=== PATIENT | male | born 1945 | race Caucasian/White ===

== ENCOUNTER 2021-01-01 12:37 | Outpatient (CLI) | payer OTHER, SELFPAY ==
--- NOTE | ~2021-01-01 | XR_ITS ---
EXAMINATION: XR lg joint inject/asp w image DATE: 01/01/2021 13:30 INDICATION: Unilateral primary osteoarthritis of the right hip TECHNIQUE: A time-out was performed to verify the patient's name, date of , and procedure to b e performed. The procedure including the risks, benefits, and alternatives was discussed with the pat ient. Risks discussed included bleeding and infection. The patient understood the risks and agreed to proceed. The skin overlying the right hip joint was prepped and draped in usual sterile fashion. A nesthetic was administered with 1% lidocaine subcutaneously. A 22 G needle was advanced under fluoro scopic guidance into the joint. Injection of 1 mL of Omnipaque 240 confirmed intra-articular positio n of the needle. Subsequently, injectate consisting of 7 mm a 5:2 mixture of 1% lidocaine: 10 mg/mL Kenalog for a total dosage of 20 mg Kenalog was instilled. Washout of contrast was seen confirming in tra-articular administration. The needle was removed and the entry site was cleaned and dressed. The re were no immediate complications. Fluoroscopy exposure time was 0.1 minutes. The total number of im ages was 2. Total DAP was 0.704 mGycm^2 FINDINGS: Real-time fluoroscopy demonstrates the needle in the right hip joint. Patient's pain prior to procedure:2/10. Patient's pain following the procedure: 0/10. Moderate to severe osteoarthritis o f the right hip. IMPRESSION: 1. Right hip joint injection of local anesthetic and steroid with decrease in the patient's presentin g pain. Reviewed, dictated and finalized at location A. IMPRESSION: 1. Right hip joint injection of local anesthetic and steroid with decrease in t he patient's presenting pain.
== END 2021-01-01 12:38 | disposition home or self-care (01) ==
PROVIDERS: PCP Family Medicine Adolescent Medicine; Visit Provider Orthopaedic Surgery
DX: M16.11 Unilateral primary osteoarthritis, right hip (principal)
CPT/HCPCS: 20610; 77002; J3301; Q9966

== ENCOUNTER 2021-04-03 07:46 | Outpatient (CLI) | payer OTHER, SELFPAY ==
--- NOTE | 2021-04-03 08:47 | ECG_ITS ---
Measurements Intervals [place] Rate: 59 P: 34 ND: 157 QRS: -69 QRSD: 130 T: -11 QT: 401 QTc: 398 Interpretive Statements SINUS BRADYCARDIA LEFT AXIS DEVIATION LEFT BUNDLE BRANCH BLOCK BASELINE ARTIFACT- I, II, III, AVR, AVL, AVF ABNORMAL ECG Electronically Signed On 04-03-2021 9:04:43 CDT by Bora Mcgraw D.O.
[2021-04-03 09:25] LABS: Basophils Absolute Auto 0.1 K/mm3 (0.0-0.1); Basophils Percent Auto 1.1 % (0.2-1.2); Eosinophils Absolute Auto 0.4 K/mm3 (0-0.3); Eosinophils Percent Auto 5.5 % (0-4.4); Hematocrit 51.5 % (42.0-52.0); Hemoglobin 16.9 g/dL (14.0-18.0); Immature Granulocyte Absolute 0.02 K/mm3 (0.00-0.031); Immature Granulocyte Percent A 0.3 % (0-0.5); Lymphocytes Absolute Auto 1.23 K/mm3 (0.9-3.2); Lymphocytes Percent Auto 18.9 % (18.3-44.2); Mean Corpuscular HGB Conc 32.8 g/dl (32-36); Mean Corpuscular Volume 91.5 fl (80-100); Monocytes Absolute Auto 0.5 K/mm3 (0.1-0.6); Monocytes Percent Auto 8.3 % (2.6-8.5); Neutrophils Absolute Auto 4.3 K/mm3 (1.3-6.7); Neutrophils Percent Auto 65.9 % (45.5-73.1); Platelet Count Result 202 k/mm3 (150-375); Red Blood Count 5.63 M/mm3 (4.6-6.20); Red Cell Distribution Width 13.2 % (11.5-14.5); White Blood Count 6.5 K/mm3 (4.5-10.0)
[2021-04-03 09:36] LABS: Albumin Level 4.7 g/dL (3.5-5.1); Estimated Glomerular Filt Rate > 60; Glucose 94 mg/dL (65-110)
[2021-04-03 09:39] LABS: Urine Cotinine NEGATIVE
[2021-04-03 09:46] LABS: Hemoglobin A1C 5.4 % (<5.7)
[2021-04-06 12:01] LABS: Theophylline 11.2 mg/L (10.0-20.0)
== END 2021-04-03 07:47 | disposition home or self-care (01) ==
LOC: ANHSURGERY 07:49
PROVIDERS: Anesthesiology; PCP Family Medicine Adolescent Medicine; Visit Provider Orthopaedic Surgery
DX: M16.9 Osteoarthritis of hip, unspecified (principal); Z01.818 Encounter for other preprocedural examination; I44.7 Left bundle-branch block, unspecified
CPT/HCPCS: 36415; 80198; 80307; 82040; 82565; 82947; 83036; 85025; 86850; 86900; 86901; 87081; 93005

== ENCOUNTER 2021-04-15 00:17 | Day surgery (SDC) | payer OTHER, SELFPAY ==
[2021-04-03 07:55] VITALS: BMI 27.1
[2021-04-03 08:45] VITALS: BP 155/73; PULSE 61; RESP 16; TEMP 36.6; O2SAT 98
[2021-04-15] VITALS (14 sets, daily range): BP systolic 104–143; BP diastolic 55–91; PULSE 76–89; RESP 12–20; TEMP 36.3–37.2; O2SAT 94–100
--- NOTE | ~2021-04-15 | XR_ITS ---
EXAMINATION: XR surgery orthopedic DATE: 04/15/2021 10:20 INDICATION: Intraoperative evaluation during right total hip arthroplasty TECHNIQUE: 2 fluoroscopic images of the right hip were obtained during procedure performed by Dr. Rick ashraf. The amount of fluoroscopy time used during this procedure was 0.3 minutes. Total DAP was 0.1 mGycm ^2. COMPARISON: 04/09/2021 FINDINGS: Intraoperative image during a right total hip arthroplasty demonstrate placement of a noncemented rig ht total hip arthroplasty which is in near-anatomic alignment. No fracture identified although assess ment of fine bone detail is somewhat limited on fluoroscopic imaging. Expected soft tissue gas at the operative bed. IMPRESSION: 1. Expected appearance during right total hip arthroplasty. Reviewed, dictated and finalized at location B.
--- NOTE | ~2021-04-15 | XR_ITS ---
EXAMINATION: XR hip RT min 2V DATE: 04/15/2021 10:56 INDICATION: Total right hip arthroplasty. Postop. TECHNIQUE: 2 views of right hip were obtained. COMPARISON: Pelvis and right hip radiographs 04/09/2021 FINDINGS: There is a total right hip arthroplasty in near-anatomic alignment. No fracture. IMPRESSION: 1. Total right hip arthroplasty in near-anatomic alignment. Reviewed, dictated and finalized at location A.
--- NOTE | 2021-04-15 06:43 | WPDANESEPPF ---
Anes - Initial Pre Proc Eval Procedure: Operation Date: 04/15/21 07:30 Proposed Procedures p Right Total Hip Arthroplasty, Anterior Approach - Franko Urbina MD Date/Time: 04/15/21 06:43 Surgeon: Franko Urbina MD Pre Op Diagnosis: OA Right hip Patient Data Age: 75 Gender: M Height: 1.7 m Weight: 78.4 kg Last Vital Signs Temp 36.6 C 04/03/21 08:45 Pulse 61 04/03/21 08:45 Resp 16 04/03/21 08:45 BP 155/73 H 04/03/21 08:45 Pulse Ox 98 04/03/21 08:45 Allergies Allergy/AdvReac Type Severity Reaction Status Date / Time DUST MITES Allergy Mild Unknown Uncoded 04/15/21 06:43 Home Medications Medication Instructions Recorded Confirmed Type aspirin 81 mg tablet,delayed 81 mg PO DAILY 12/25/20 04/09/21 History release atorvastatin 10 mg tablet 10 mg PO DAILY 12/25/20 04/09/21 History cetirizine 10 mg capsule 10 mg PO DAILY 12/25/20 04/09/21 History finasteride 5 mg tablet 5 mg PO DAILY 12/25/20 04/09/21 History flunisolide 29 mcg (0.025 %) nasal 2 mcg INTRANASAL DAILY 12/25/20 04/09/21 History spray fluticasone 250 mcg-salmeterol 50 1 inh INHALATION BID 12/25/20 04/09/21 History mcg/dose blistr powdr for inhalation gabapentin 300 mg capsule 300 mg PO HS 12/25/20 04/09/21 History magnesium oxide 400 mg PO HS 12/25/20 04/09/21 History montelukast 10 mg tablet 10 mg PO HS 12/25/20 04/09/21 History omeprazole 40 mg capsule,delayed 40 mg PO DAILY 12/25/20 04/09/21 History release tamsulosin 0.4 mg capsule 0.4 mg PO BID 12/25/20 04/09/21 History theophylline 300 mg 300 mg PO Q12H 12/25/20 04/09/21 History tablet,extended release,12 hr acetaminophen [Tylenol Arthritis] 650 mg PO Q12H 04/03/21 04/09/21 History aeqcyahi-kkf-FK-lycopen-lutein 1 tablet PO DAILY 04/03/21 04/09/21 History [Centrum Silver Men] rivaroxaban 10 mg tablet 10 mg PO DAILY #14 tablet 04/09/21 Rx Patient hx anesthesia problems: none Family hx anesthesia problems: none Results Review: All pre-operative results and documents have been reviewed as part of the pre-operative evaluation. [facility] Past Medical History Medical History (Updated 04/15/21 @ 06:45 by Garth Jones DO) Asthma GERD (gastroesophageal reflux disease) Hyperlipidemia Osteoarthritis of hip Both hips are arthritic, right is worse Family History Family History Mother Lung cancer Father Asthma Social History Social History Smoking status: Never smoker Additional smoking assessment comments: DENIES ANY FORM OF TOBACCO USE Alcohol intake: current Drinks per week: 5 Living arrangements: with family Gender identity (if verbalized by the patient): Male Spiritual care concerns: No Anes - Eval Final PreProcedure Day of Procedure 04/15/21 06:43 Patient weight: overweight Heart: regular rate and rhythm Lungs: clear to auscultation and normal air movement Airway: Mallampati scale class II Neurological: alert and oriented Last oral intake: >/= 8 hours ASA classification: II Emergent: no Anesthetic plan: proceed Anesthesia type and monitoring: general ETT and standard monitoring Results Review: All pre-operative results and documents have been reviewed as part of the pre-operative evaluation. Informed Consent: The patient's anesthetic plan and its attendant risks and benefits were discussed with the patient/family/POA. Questions were solicited and answers provided to the satisfaction of the patient/family/POA.
[2021-04-15] MEDS: ACETAMINOPHEN 500 MG TABLET 1000 MG PO (06:57)
[2021-04-15] MEDS: LACTATED RINGERS 1,000 ML 30 ML IV CONT ×2 (07:06→10:25)
[2021-04-15] MEDS: TRANEXAMIC ACID 1,000MG/ISO100 1,000 MG/100 ML BAG 200 MG IVPB (07:06)
--- NOTE | 2021-04-15 07:08 | WPDHPUPDATE1 ---
History and Physical Update Update Date/Time: 04/15/21 07:08 History and Physical has been reviewed, including an updated exam of the patient. There are NO changes in the patient's condition. Risks, benefits, and alternatives have been discussed and questions answered. Patient agrees to proceed with procedure.
[2021-04-15] MEDS: ceFAZolin 2 GM/D5W 50 ML 2 GM/50 ML BAG IVPB ×3 (07:41→23:49)
--- NOTE | 2021-04-15 10:26 | P.OP_ITS ---
Procedure Note - Detailed Date of Procedure 04/15/21 Pre-op Diagnosis OA Right hip Post-op Diagnosis same Procedure Performed fluoroscopically assisted right total hip replacement through an anterior approach Surgeon Franko Urbina MD Vascular Sonographer Shanon Mock Anesthesia general Description of Procedure The patient was identified, proper side identified, and then taken to the operating room. After general anesthetic induction and intubation, he was then transferred over to the [place] table positioning supine in the usual manner for an anterior hip procedure. Positioning was assessed fluoroscopically after which the right hip and thigh was prepped and draped in the usual sterile fashion. 10 cc of the arthroplasty solution was injected into the subcutaneous tissue over the TFL muscle belly. Longitudinal incision was made over the muscle belly. Subcutaneous tissue was sharply dissected down to the TFL fascia which was incised in line with the fibers the TFL. The TFL was retracted laterally and the rectus femoris medially. The rectus fascia was divided. The branches of the anterior femoral circumflex artery were identified and cauterized allowing for access to the hip capsule. Pericapsular fatty tissue was removed. The capsule was divided in an inverted T-fashion. The neck cut was made one fingerbreadth above the level of the lesser trochanter. Head fragment was removed and the acetabulum cleared of debris. Acetabulum was sequentially reamed under fluoroscopic visualization up to 51 mm. A 52 G7 shell was inserted under fluoroscopic visualization in approximately 40? of abduction and 15? of anteversion following the patient's anatomy. The liner for the Thirty- six head was placed. The femur was then delivered up into the wound with the appropriate releases. The proximal femur was prepared for the 11 offset microplasty stem and a trial reduction was undertaken. Overall alignment was assessed fluoroscopically in the AP and lateral views noting it to be satisfactory. Trial components were removed. The wound was irrigated with pulsatile lavage. The real size 11 high offset micro plasty stem was then seated. This construct with a size 36, minus three head gave excellent caodaism of leg lengths and stability so the real size 36 minus three ceramic head was attached to the neck of the femoral component after it had been cleaned and dried. Hip was again reduced and stability assessed, and it was noted to be stable. After final lavage of the wound, the periarticular tissues were injected with an additional 50 cc of the arthroplasty solution. 1 g of tranexamic acid was left in the wound. The capsule was reapproximated with #2 Vicryl suture, the TFL fascia with 0 looped PDS suture, the subcu with two of strata fix in the deeper layers and two of strata fix subcuticular stitch. Tissue adhesive was used for the skin. Sterile dressing was applied. He tolerated the procedure well. He was transferred back to a bed and taken to recovery area in stable condition. There were no known intraoperative complications. Estimated blood loss was 200 cc. He received perioperative antibiotics. Estimated Blood Loss 200 Drains No Packing No Pathology none sent Complications No immediate complications Condition stable Disposition PACU
[2021-04-15] MEDS: fentaNYL CITRATE INJ (*CRX) 100 MCG/2 ML VIAL 25 MCG IV PUSH ×6 (10:42→12:01)
--- NOTE | 2021-04-15 11:27 | SUR.PHASEI ---
[id number] sbar faxed floor notified
--- NOTE | 2021-04-15 12:27 | ADMGEN ---
This patient, Demar Beltran, was admitted to Medical Room 247-. Patient/family oriented to hospital policies and general routines including ID bracelet, bed and alarms, visiting hours, pain management, procedures, bathroom and other care routines, personal items, smoking policy, room service/diet, and visiting hours. Information on how to activate the Rapid Response Team has been discussed. Patient/Family are encouraged to report perceived risks to care and to ask questions if they do not understand what they are told or what they should do.
[2021-04-15] MEDS: ACETAMINOPHEN 325 MG TABLET 650 MG PO ×2 (12:49→18:27)
[2021-04-15] MEDS: KETOROLAC 15 MG/ML VIAL (*BKC) IV PUSH ×3 (12:49→23:49)
[2021-04-15] MEDS: DEXTROSE 5%/0.45% SOD CHL 1,000 ML 80 ML IV CONT (12:49)
--- NOTE | 2021-04-15 15:39 | PCPTNOTE ---
On 04/15/21, the student, Rolly Kumar, provided care and completed [facility] documentation on this patient. I have reviewed the student's documentation and agree with the findings.
[2021-04-15] MEDS: TAMSULOSIN HCL 0.4 MG CAPSULE PO (16:09)
[2021-04-15] MEDS: DOCUSATE SODIUM 100 MG CAPSULE PO (16:09)
[2021-04-15] MEDS: FLUTICASONE/SALMETEROL 115-21 MCG INHALER 1 PUFF 2 PUFF INHALATION (20:03)
[2021-04-15] MEDS: MONTELUKAST SODIUM 10 MG TABLET PO (21:03)
[2021-04-15] MEDS: GABAPENTIN 300 MG CAPSULE PO (21:03)
[2021-04-15] MEDS: MAGNESIUM OXIDE 400 MG TABLET PO (21:03)
[2021-04-16] MEDS: ACETAMINOPHEN 325 MG TABLET 650 MG PO ×3 (00:59→13:19)
[2021-04-16 03:35] VITALS: BP 122/53; PULSE 75; RESP 17; TEMP 37; O2SAT 95
--- NOTE | 2021-04-16 07:35 | PM.PNORT ---
Progress Note: A&P Assessment and Plan (1) History of right hip replacement: Code(s): Z96.641 - Presence of right artificial hip joint Status: Resolved (2) Urinary retention: Code(s): R33.9 - Retention of urine, unspecified Status: Acute Assessment and Plan: 75-year-old male postop day one right hip replacement through an anterior approach. Will have him continue with therapy today. For the urinary retention, urology has been consulted. Currently has a Mandujano in. Will cover with Bactrim DS while Mandujano is in place. Subjective Subjective Date/Time Seen: 04/16/21 07:35 Post Op day: 1 Principal diagnosis: Status post right hip replacement done through anterior approach Interval history: This document created with [id number] technology and is subject to ear flap binder irregularities. 75-year-old male who is postop day one right hip replacement done through an anterior approach. He was noted to have significant urinary retention with post void residuals of 1000, and 800 yesterday. History of prostatic hypertrophy. He indicated that he did not take his prostate medication just prior to surgery. Currently has a Mandujano in. Urology has been consulted. Is experiencing some soreness in the right hip area. Review of Systems Constitutional: Constitutional: Denies chills and Denies fever(s) Eyes: Eyes: Reports no additional eye complaints ENT: Reports system reviewed and no additional complaints, except as documented Cardiovascular: Cardiovascular: Denies chest pain and Denies dyspnea on exertion Respiratory: Respiratory: Reports no additional respiratory complaints and Denies dyspnea on exertion Gastrointestinal: Gastrointestinal: Denies abdominal pain and Denies bloating Exam Const: General: cooperative, no acute distress and alert Nutritional Appearance: other Orientation/consciousness: patient oriented x3 Limitations: no limitations HENMT: Head: normal to inspection Ears: hearing grossly normal bilaterally Face and sinus: face symmetric Mouth: Yes moist mucous membranes Teeth and gingiva: fair dentition Eyes: Alignment and Position: alignment normal and position normal Sclera: sclerae normal Neck: Neck: normal visual inspection and nontender Chest: Chest palpation & inspection: normal inspection of the chest Resp: Effort & Inspection: normal respiratory effort and able to speak in complete sentences GI: Inspection: other ( Nondistended) Skin: General skin exam: normal color Rashes: no rashes Neuro: General: patient oriented x3 Cognition (Neuro): normal cognition Speech: normal speech Sensory Exam: normal sensation Extrem: General: normal to inspection and other Other: Exam of the right hip wound does show some bruising with minimal swelling. Incision is dry. Grossly neurovascular status intact right lower extremity. Calves negative. Psych: Appearance: grossly normal Mental Status: mental status grossly normal Objective Data Vital Signs Vital Signs: Vital Signs - 24 hr 04/15/21 10:30 04/15/21 10:45 04/15/21 11:00 Temperature 97.9 F Pulse Rate 84 78 79 Respiratory Rate 12 14 12 Blood Pressure 140/59 L 104/91 H 121/69 Pulse Oximetry 94 98 100 04/15/21 11:19 04/15/21 11:35 04/15/21 11:53 Temperature Pulse Rate 80 80 83 Respiratory Rate 18 20 20 Blood Pressure 117/55 L 122/68 129/81 Pulse Oximetry 94 94 98 04/15/21 12:15 04/15/21 12:30 04/15/21 13:00 Temperature 98.4 F 98.2 F 98.1 F Pulse Rate 77 79 85 Respiratory Rate 20 20 20 Blood Pressure 130/61 125/72 140/67 Pulse Oximetry 98 97 97 04/15/21 14:00 04/15/21 18:00 04/15/21 20:21 Temperature 98.7 F 98.6 F 99 F Pulse Rate 89 87 82 Respiratory Rate 20 20 18 Blood Pressure 134/71 130/70 132/58 L Pulse Oximetry 97 98 95 04/15/21 23:55 04/16/21 03:35 Temperature 99 F 98.6 F Pulse Rate 82 75 Respiratory Rate 17 17 Blood Pressure 128/60 122/53 L Pulse Oximetry 97 95 Intake
[2021-04-16 08:19] LABS: Estimated CRCL calculation 54 ml/min; Estimated Glomerular Filt Rate > 60
--- NOTE | 2021-04-16 08:42 | WPDURCON ---
Assessment and Plan Assessment and plan (1) Urinary retention: Code(s): R33.9 - Retention of urine, unspecified Status: Acute Assessment and Plan: Patient to keep jimenez catheter in for 7-10 days, and then f/u in our office for a voiding trial. No further evaluation needed. (2) BPH (benign prostatic hyperplasia): Code(s): N40.0 - Benign prostatic hyperplasia without lower urinary tract symptoms Status: Acute Assessment and Plan: Restart Tamsulosin and Finasteride. Continue both medications s/p discharge. Urology Consult Note HPI Date Seen: 04/16/21 Requesting Physician: Franko Urbina MD Primary Care Provider: Joel Real MD Consult Narrative Narrative: Demar Beltran is a 75 year old male who is s/p a right total hip arthroplasty, which was done yesterday by Dr. Urbina. He is recovering well and in very little pain. He is sitting up in the chair this morning and tolerating his diet. However, he has had elevated urinary residuals of 800-1000cc of urine via straight catheterization. He normally is on Finasteride and Flomax at home which is prescribed by his PCP. He has been on the medications for years without any problems. He normally has nocturia x2/night, urinates q 2-3 hours daily, denies straining, hesitancy or incontinence. He states he stopped his BPH meds the day before surgery and thinks this may be contributing to his retention. He has never seen a urologist and has never had a jimenez catheter. Review of Systems Cardiovascular: Cardiovascular: Denies chest pain Respiratory: Respiratory: Reports no additional respiratory complaints Gastrointestinal: Gastrointestinal: Denies abdominal pain, Denies nausea and Denies vomiting Genitourinary: Genitourinary: Denies hematuria, Denies dysuria, Denies flank pain, Denies nocturia, Denies urinary frequency, Denies urinary hesitancy, Denies urinary incontinence and Denies urinary urgency [facility] Past Medical History Medical History Asthma GERD (gastroesophageal reflux disease) Hyperlipidemia Osteoarthritis of hip Surgical History Surgical History History of right hip replacement anterior approach April 15, 2021 Family History Family History Mother Lung cancer Father Asthma Social History Social History Smoking status: Never smoker Additional smoking assessment comments: DENIES ANY FORM OF TOBACCO USE Alcohol intake: never Drinks per week: 5 Substance use: never Substance use type: does not use Living arrangements: with family Gender identity (if verbalized by the patient): Male Sexual Orientation (if Verbalized by the Patient): Straight or Heterosexual Spiritual care concerns: No Meds Home Medications and Allergies Home Medications Medication Instructions Recorded Confirmed Type aspirin 81 mg tablet,delayed 81 mg PO DAILY 12/25/20 04/15/21 History release atorvastatin 10 mg tablet 10 mg PO DAILY 12/25/20 04/15/21 History cetirizine 10 mg capsule 10 mg PO DAILY 12/25/20 04/15/21 History finasteride 5 mg tablet 5 mg PO DAILY 12/25/20 04/15/21 History flunisolide 29 mcg (0.025 %) nasal 2 mcg INTRANASAL DAILY 12/25/20 04/15/21 History spray fluticasone 250 mcg-salmeterol 50 1 inh INHALATION BID 12/25/20 04/15/21 History mcg/dose blistr powdr for inhalation gabapentin 300 mg capsule 300 mg PO HS 12/25/20 04/15/21 History magnesium oxide 400 mg PO HS 12/25/20 04/15/21 History montelukast 10 mg tablet 10 mg PO HS 12/25/20 04/15/21 History omeprazole 40 mg capsule,delayed 40 mg PO DAILY 12/25/20 04/15/21 History release tamsulosin 0.4 mg capsule 0.4 mg PO BID 12/25/20 04/15/21 History theophylline 300 mg 300 mg PO Q12H 12/25/20 04/15/21 History
[2021-04-16] MEDS: ceFAZolin 2 GM/D5W 50 ML 2 GM/50 ML BAG IVPB (08:59)
[2021-04-16] MEDS: FLUTICASONE PROPIONATE 0.05% NA SPR 16 GM BTL (*BKC) 2 SPRAY NASAL (09:01)
[2021-04-16] MEDS: DOCUSATE SODIUM 100 MG CAPSULE PO (09:01)
[2021-04-16] MEDS: ASPIRIN 81 MG ENTERIC TABLET PO (09:01)
[2021-04-16] MEDS: OPTI-GEN TAB 1 TABLET PO (09:01)
[2021-04-16] MEDS: RIVAROXABAN 10 MG TABLET PO (09:01)
[2021-04-16] MEDS: TAMSULOSIN HCL 0.4 MG CAPSULE PO (09:01)
[2021-04-16] MEDS: ATORVASTATIN 10 MG TABLET PO (09:01)
[2021-04-16] MEDS: FINASTERIDE 5 MG TABLET PO (09:01)
[2021-04-16] MEDS: LORATADINE 10 MG TABLET PO (09:01)
[2021-04-16] MEDS: oxyCODONE HCL (*CRX) 5 MG TAB IR PO (09:11)
[2021-04-16] MEDS: FLUTICASONE/SALMETEROL 115-21 MCG INHALER 1 PUFF 2 PUFF INHALATION (09:28)
[2021-04-16 09:47] VITALS: BP 135/50; PULSE 75; RESP 16; TEMP 36.6; O2SAT 98
--- NOTE | 2021-04-16 10:24 | WPDANESPN ---
Anes - Prog Note Post-Op Date/Time: 04/16/21 10:24 Cardiovascular status: normal Respiratory status: normal Airway patency: baseline Mental status: baseline Post-Op hydration status: normal Vital Signs: Last Vital Signs Temp 36.6 C 04/16/21 09:47 Pulse 75 04/16/21 09:47 Resp 16 04/16/21 09:47 BP 135/50 L 04/16/21 09:47 Pulse Ox 98 04/16/21 09:47 Pain Score (VAS): 3 I/O: Intake & Output 04/15/21 04/16/21 04/16/21 23:59 07:59 15:59 Intake Total 990 350 350 Output Total 1900 1050 Balance -910 -700 350 Laboratory Tests 04/16/21 07:58 04/16/21 07:58 Creatinine 1.00 Estim Creat Clear Calc 54 Estimated GFR > 60 Post-procedural complaints: none Patient Feedback: Patient satisfied with anesthetic care.
--- NOTE | 2021-04-16 11:30 | PM.DS ---
DS: Admitting Diagnosis Discharge Date 04/16/2021 Admitting Diagnosis Osteoarthritis right hip DS: Discharge Diagnosis Discharge Diagnosis (1) Urinary retention: Code(s): R33.9 - Retention of urine, unspecified Status: Acute (2) History of right hip replacement: Code(s): Z96.641 - Presence of right artificial hip joint Status: Resolved Assessment and Plan: 75-year-old male admitted for observation after anterior approach right hip replacement. He developed urinary retention and had a Mandujano placed. After consult with Urology, he will keep the Mandujano in place and follow up with him in 7-10 days. We will give him Bactrim DS for coverage during this time. He will also follow-up in our office in 2 weeks for postop care. DS: Summary Hospital Course Reason for hospitalization: observation after outpatient procedure Hospital Course: 75-year-old male admitted for observation after anterior approach right hip replacement. He developed urinary retention and had a Mandujano placed. Urology was consulted. The Mandujano will remain in place until his follow-up with them in 7-10 days. Patient had minimal pain during hospital stay. Therapy was provided and patient will do exercises on his own for the 1st week. He will follow up in our office in 2 weeks for postop care. Status at Discharge Functional status at discharge: uses cane/walker Overall status at discharge: patient is progressing back to baseline Exam Const: General: cooperative, no acute distress and alert Nutritional Appearance: other Orientation/consciousness: patient oriented x3 Limitations: no limitations HENMT: Head: normal to inspection Ears: hearing grossly normal bilaterally Face and sinus: face symmetric Mouth: Yes moist mucous membranes Teeth and gingiva: fair dentition Eyes: Alignment and Position: alignment normal and position normal Sclera: sclerae normal Neck: Neck: normal visual inspection and nontender Chest: Chest palpation & inspection: normal inspection of the chest Resp: Effort & Inspection: normal respiratory effort and able to speak in complete sentences GI: Inspection: other ( Nondistended) Skin: General skin exam: normal color Rashes: no rashes Neuro: General: patient oriented x3 Cognition (Neuro): normal cognition Speech: normal speech Sensory Exam: normal sensation Extrem: General: normal to inspection and other Other: Exam of the right hip wound shows minimal swelling distal to the incision site. Incision is dry. Grossly neurovascular status intact right lower extremity. Calves negative. Psych: Appearance: grossly normal Mental Status: mental status grossly normal DS: Data Data Completed and Pending Labs on day of discharge: Labs from last 24 hours 04/16/21 07:58 Creatinine 1.00 Estim Creat Clear Calc 54 Estimated GFR > 60 Discharge Plan Discharge Patient Disposition: Home, Self-Care Discharge Instructions: 3 times daily for 20 minutes each time, reclining in bed with ice packs over the incision and a pillow underneath the calf of the affected leg, not under the knee. Your wound is glued so it is okay to get into the shower and get the wound wet in two days. Be sure to read through all the information that came from a my office and the hospital. Most of the answers you will need can be found that material. Call the office with any questions that you cannot find answers to, or concerns you may have. After the Xarelto is completed , resume taking your daily baby aspirin Please call [facility] at as soon as possible to Verify your follow-up appointment to be seen in 2 weeks. Also, call the office with any orthopedic/surgical related questions prior to follow-up. Be sure to get up and move around several times daily but do not overdo it. Take the arthritis formula Tylenol 650 mg tablet on an 8 hour schedule. A good 8 hour schedule is: 6:00 a.m., 2:00 p.m., 10
--- NOTE | 2021-04-16 11:44 | PC.NURSE ---
On 04/16/21, the student, Joseluis Holden, provided care and completed [facility] documentation on this patient. I have reviewed the student's documentation and agree with the findings.
[2021-04-16 13:35] VITALS: BP 110/77; PULSE 84; RESP 14; TEMP 37.4; O2SAT 99
== END 2021-04-16 15:15 | disposition home or self-care (01) ==
LOC: ANHSURGERY 10:17 → ANH2MED 12:07
PROVIDERS: PCP Family Medicine Adolescent Medicine; Visit Provider Orthopaedic Surgery
PROC: (CPT 27130; principal; 2021-04-15 07:30)
DX: M16.11 Unilateral primary osteoarthritis, right hip (principal); N40.1 Benign prostatic hyperplasia with lower urinary tract symptoms; R33.8 Other retention of urine; J45.909 Unspecified asthma, uncomplicated; E78.5 Hyperlipidemia, unspecified; K21.9 Gastro-esophageal reflux disease without esophagitis; Z79.82 Long term (current) use of aspirin
CPT/HCPCS: 27130; 36415; 73502; 80198; 80307; 82040; 82565; 82947; 83036; 85025; 86850; 86900; 86901; 87081; 93005; 94640; 97110; 97116; 97161; 97165; 97530; 97535; A9270; C1776; J0690; J1100; J1885; J2405; J2704; J2710; J3010; J7120

== ENCOUNTER → 2023-02-23 08:46 | Outpatient (CLI) | payer OTHER, SELFPAY ==
--- NOTE | ~2023-02-23 | XR_ITS ---
EXAMINATION:XR_[id number]_CR DATE: 02/23/2023 09:01 INDICATION: Neck pain TECHNIQUE: AP, lateral, lateral swimmers and odontoid views of the cervical spine are provided. COMPARISON: 02/25/2011 FINDINGS: Alignment is normal. There is loss of the normal cervical lordosis. The odontoid process is intact. No fracture is identified. The vertebral body heights are maintained. There is unchanged mod erate loss of intervertebral disc space height at C5-6, C6-7, and C7-T1. Mild to moderate disc space narrowing is present throughout the remainder of the cervical spine. Prevertebral soft tissues are no rmal. Small degenerative osteophytes project from the anterior endplates of multiple vertebral bodies . There is multilevel severe facet and uncovertebral joint osteoarthritis. IMPRESSION: 1. Moderate cervical spondylosis without acute findings or significant interval change. Reviewed, dictated and finalized at location B.
== END ==
PROVIDERS: PCP Family Medicine Adolescent Medicine; Visit Provider Family Medicine Adolescent Medicine
DX: M47.892 Other spondylosis, cervical region (principal)
CPT/HCPCS: 72040

== ENCOUNTER → 2023-04-15 13:55 | Outpatient (CLI) | payer OTHER, SELFPAY ==
--- NOTE | ~2023-04-15 | XR_ITS ---
XR hip RT 2V w AP pelvis DATE: 04/15/2023 14:35 INDICATION: Right artificial hip joint TECHNIQUE: AP pelvis. AP and lateral views of right hip COMPARISON: pelvis and right hip FINDINGS: Levoscoliosis and degenerative change of the lumbar spine. Normal alignment at the pubic symphysis and sacroiliac joints. No pelvic fracture or bone destruction . Right bipolar hip prosthesis. No fracture or dislocation of right hip. Mild to moderate osteoarthritis at the left hip joint. 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
== END ==
PROVIDERS: PCP Orthopaedic Surgery; Visit Provider Orthopaedic Surgery
DX: Z96.641 Presence of right artificial hip joint (principal); M16.12 Unilateral primary osteoarthritis, left hip
CPT/HCPCS: 73502

== ENCOUNTER 2025-04-13 09:03 | Outpatient (CLI) | payer OTHER, SELFPAY ==
--- NOTE | ~2025-04-13 | XR_ITS ---
EXAMINATION: XR shoulder LT min 2V, 04/13/2025 9:08 CDT HISTORY: M25.511 - Pain in right shoulder COMPARISON: No comparisons available. Findings: No acute fracture or malalignment. Moderate to severe degenerative changes Soft tissues unremarkable. Impression: No acute fracture or malalignment. Reviewed, dictated and finalized at location P. Impression: No acute fracture or malalignment.
== END 2025-04-13 09:04 | disposition home or self-care (01) ==
PROVIDERS: PCP Family Medicine Adolescent Medicine; Visit Provider Family Medicine Adolescent Medicine
DX: M19.012 Primary osteoarthritis, left shoulder (principal); M25.511 Pain in right shoulder
CPT/HCPCS: 73030

== ENCOUNTER 2025-06-06 15:38 | Outpatient (CLI) | payer OTHER, SELFPAY ==
--- NOTE | ~2025-06-06 | MR_ITS ---
EXAMINATION: MRI left shoulder without contrast: DATE: 06/07/2025. INDICATION: Pain left shoulder. TECHNIQUE: Coronal, oblique sagittal and axial images of the left shoulder were obtained. COMPARISON: Left shoulder x-ray dated 04/13/2025. FINDINGS: No acute bony lesions at the left shoulder. Severe supraspinatus tendinitis is noted. Irregular, thickness tear of the distal anterior aspect of the supraspinatus tendon is noted calcific changes. Full-thickness tear measures length of 9 mm and the width of 15 mm. Hook-shaped acromion process impinges on the subacromion space and the supraspinatus with fluid in the subacromion bursa. Degenerative changes of glenohumeral joint is noted. Severe degenerative changes of the glenoid labrum is noted 8 mm size para Labral cyst at the posterior lip of the labrum. No displaced tear. Osteochondral loose bodies are seen in the fluid distending the glenohumeral joint. IMPRESSION: 1. No acute bony lesions of the left shoulder. 2. Significant distal supraspinatus tendinitis is noted with large irregular full-thickness tear distal supraspinatus. 3 hook-shaped acromion process is significantly impinging on the subacromion space and the supraspinatus. 4. Significant degenerative changes of the glenoid labrum and glenohumeral joint with 8 mm size cyst of the posterior lip of the glenoid labrum. No displaced labral tear. 5. Fluid stranding the glenohumeral joint extending to the subacromion bursa. Osteochondral loose body debris are noted in the fluid. 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 No acute bony lesions of the left shoulder. 2. Significant distal supraspinatus tendinitis is noted with large irregular fu ll-thickness tear distal supraspinatus. 3 hook-shaped acromion process is signi ficantly impinging on the subacromion space and the supraspinatus. 4. Significant degenerative changes of the glenoid labrum and glenohumeral join t with 8 mm size cyst of the posterior lip of the glenoid labrum. No displaced labral tear. 5. Fluid stranding the glenohumeral joint extending to the subacromion bursa. O steochondral loose body debris are noted in the fluid.
--- OUTSIDE RECORDS SUMMARY | 2025-06-06 17:13 | XMS_ITS | Clinical Summary ---
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 90 Cap 3 06/20/2016 Active Immunizations Immunization Administration Dates Next Due Covid-19, Mrna, Lnp-s, PF, 1 00 mcg/0.5 mL Dose (Moderna) 09/23/2020,08/23/2020 Social History Tobacco Use Types Packs/Day Years Used Date Smoking Tobacco: Never Assessed Sex and Gender Information Value Date Recorded Sex Assigned at Not on file Legal Sex Male 11:03 PM CDT Gender Identity Not on file Sexual Orientation Not on file Plan of Treatment Health Maintenance Due Date Last Done Comments Hepatitis C Virus (HCV) Screening 1945 TdaP Immunization 1945 Pneumococcal Immunization (5 0+ years) (1 of 1 - PCV) 1996 Zoster Immunization (1 of 2) 1996 Medicare Initial AWV [id number] 08/13/2012 Respiratory Syncytial Virus (RSV) Immunization (Adult) (1 - 1-dose 75+ series) 2021 Influenza Immunization (#1) 2025 102 11/2013, 06/28/2013 SARS-COV-2 Immunization ( - 2024- season) 2025 05/27/2021, 09/23/2020, 08/23/2020 Colonoscopy Discontinued 05/24/2015 Colorectal Cancer Screening Discontinued Cologuard Discontinued Hepatitis B Immunization Aged Out No longer eligible based on patient's age to complete this topic Human Papillomavirus (HPV) Immunization Aged Out No longer eligible based on patient's age to complete this topic Immunochemical Fecal Occult Blood Discontinued Meningococcal Immunization (ACWY) Aged Out No longer eligible based on patient's age to complete this topic Rotavirus Immunization Aged Out No lo nger eligible based on patient's age to complete this topic Procedures Procedure Name Priority Date/Time Associated Diagnosis Comments COLONOSCOPY Routine 05/24/2015 from Last 3 Months or Most Recently Relevant to Health Maintenance Results * COLONOSCOPY (05/24/2015) Joel Real MD PROCEDURE/MINOR SURGICAL ORDERABLES Final Result from Last 3 Months or Most Recently Relevant to Health Maintenance Insurance MEDICARE C [employer] Care 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
== END 2025-06-06 15:39 | disposition home or self-care (01) ==
PROVIDERS: PCP Family Medicine Adolescent Medicine; Visit Provider Physician Assistant Surgical
DX: M75.82 Other shoulder lesions, left shoulder (principal); M19.012 Primary osteoarthritis, left shoulder
CPT/HCPCS: 73221